=== PATIENT | male | born 1960 | race Caucasian/White ===

== ENCOUNTER → 2016-11-11 | Outpatient (CLI) | payer BC ==
[~2016-11-11] MED LIST: PRINIVIL40 MG PO
--- NOTE | ~2016-11-11 | EKG ---
PATIENT: JOANNE GELLER UNIT #: [id number] Ventricular Rate: 71 BPM Atrial Rate: 71 BPM P-R Interval: 144 ms QRS Duration: 86 ms Q-T Interval: 380 ms QTC Calculation(Bezet): 412 ms P [place]: 41 degrees Calculated R [place]: 42 degrees Calculated T [place]: 43 degrees Diagnosis Line: Normal sinus rhythm Diagnosis Line: Minimal voltage criteria for LVH, may be normal Diagnosis Line: variant Diagnosis Line: Borderline ECG Diagnosis Line: No previous ECGs available Diagnosis Line: Confirmed by LORRI SANCHEZ MD ([id number]) on Diagnosis Line: 11/12/2016 11:33:49 AM INTERPRETING MD: LAURA CANSECO
== END | disposition home or self-care (01) ==
LOC: CAMB 09:35
DX: Z01.810 Encounter for preprocedural cardiovascular examination (principal); K40.20 Bilateral inguinal hernia, without obstruction or gangrene, not specified as recurrent
CPT/HCPCS: 93005

== ENCOUNTER → 2016-11-12 | Day surgery (SDC) | payer BC ==
--- NOTE | ~2016-11-12 | OR ---
Unit #: [id number] #: [id number] Patient: JOANNE GELLER [id number] [address] [id number] MR#: [id number] NAME: JOANNE GELLER ROOM: Date of Procedure: 11/12/2016 Admission Date: 11/12/2016 Surgeon: Anil Prince M.D. : 1960 Attending Physician: Anil Prince M.D. OPERATIVE REPORT PREOPERATIVE DIAGNOSIS Right inguinal hernia. POSTOPERATIVE DIAGNOSIS Direct right inguinal hernia. PROCEDURE PERFORMED Laparoscopic preperitoneal right inguinal hernia repair. TRAFFIC CHIEF Jason Barrios M.D. ANESTHESIA General anesthesia. ESTIMATED BLOOD LOSS Minimal. IV FLUIDS 800 crystalloid. COMPLICATIONS None. INDICATIONS FOR PROCEDURE The patient is a 56-year-old with bulge in his right groin consistent with an inguinal hernia. DESCRIPTION OF PROCEDURE The patient was taken to the operating theater and placed in supine position. General anesthesia was induced. The abdomen was prepped and draped. An infraumbilical incision was then made. A small incision was made in the anterior sheath. I created the preperitoneal space in the right side only. I then placed a Veress needle intraabdominally. The abdomen was insufflated to 15 mmHg with CO2. Under direct vision, I placed a 5-mm port. The patient was placed in Trendelenburg. I identified a right-sided direct inguinal hernia. No left-sided hernia. The pneumoperitoneum was released. Using the AutoSuture balloon dissection system, I created the preperitoneal space in the right side only. I placed two 5-mm ports in the midline. I dissected the right groin, identifying the lateral space. I identified Fernandez ligament and reduced the direct hernia. I then skeletonized the cord and brushed back Unit #: [id number] #: [id number] Patient: JOANNE GELLER the peritoneal reflection. I then placed a large 3DMax mesh into position. This was anteriolized to cover the direct and indirect spaces nicely. I then secured to Fernandez ligament as well as lateral anterior musculature with the tacking device. Hemostasis was adequate. I released the pneumopreperitoneum with care taken to avoid the peritoneum sliding posterior to the mesh. Hemostasis was adequate. I removed the ports under direct vision. I then closed the fascia with 0 Vicryl and skin with 4-0 Vicryl. The patient tolerated the procedure well and sent to recovery room in good condition. Dictated by... Ricki Nails/terrance TD: 11/12/2016 13:45 JOB #: [id number] OPERATIVE REPORT Page 1 of 1 X Anil Prince MD X PROCEDURE OPERATIVE NOTE
== END | disposition home or self-care (01) ==
LOC: CSUR 08:48
DX: K40.90 Unilateral inguinal hernia, without obstruction or gangrene, not specified as recurrent (principal); E78.00 Pure hypercholesterolemia, unspecified; I10 Essential (primary) hypertension; Z98.52 Vasectomy status; Z90.49 Acquired absence of other specified parts of digestive tract; Z79.899 Other long term (current) drug therapy
CPT/HCPCS: C1781; J0330; J0690; J2250; J2405; J2710; J3010